=== PATIENT | female | born 1935 | race Caucasian/White ===

== ENCOUNTER 2021-01-07 13:29 | Outpatient (CLI) | payer MEDICARE, MEDICAID, SELFPAY | END 2021-01-07 13:30 | disposition home or self-care (01) | PROVIDERS: PCP Family Medicine; Visit Provider Specialist | DX: L01.00 Impetigo, unspecified (principal) | CPT/HCPCS: 87070; 87205 ==

== ENCOUNTER 2021-04-08 11:09 | Outpatient (CLI) | payer MEDICARE, MEDICAID, SELFPAY | END 2021-04-08 11:10 | disposition home or self-care (01) | LOC: CHSOUTPT 11:15 | PROVIDERS: PCP Family Medicine; Visit Provider Specialist | DX: C44.42 Squamous cell carcinoma of skin of scalp and neck (principal) | CPT/HCPCS: 88305 ==

== ENCOUNTER 2022-06-11 01:23 | Day surgery (SDC) | payer OTHER, SELFPAY ==
[2022-05-26 08:36] VITALS: BMI 32.3
--- NOTE | 2022-05-26 10:56 | PC.NURSE ---
PRE-OP INSTRUCTIONS, PLEASE READ CAREFULLY Report to the Outpatient Waiting Room, entrance under the green pavilion located off [facility], at time _0800_ on date _06/03/22_. Planned Procedure Time: _1000_. Time changes happen often and if your time is changed the preop area will call you the afternoon before. - You and your visitor will be asked to self-screen and do not enter if you have any COVID symptoms. - Only one visitor is requested with a max of two and NO children visitors are allowed at this time. - The patient visitor may be requested to leave or wait in car when not with patient due to distancing restrictions. - A mask is optional within the hospital. Patients may have clear liquids (water, carbonated beverages, clear teas, apple juice) until 3 hours prior to surgery (0700 AM) with a maximum of 20 ounces. - No food from midnight until time of surgery Take the following medications with a SIP of water the morning of surgery: _METOPROLOL, TYLENOL IF NEEDED_ Medications to discontinue ANESTHESIA - _MULTIVITAMIN 3 DAYS PRIOR TO SURGERY, Date to take last dose 05/30/22_ (PT MAY CONTINUE ASPIRIN PER DR. HOYOS) Please no make-up, nail sinhala, hairspray, perfume, deodorant, or body powder the day of surgery. No jewelry (including any body piercings) or valuables the day of surgery, leave them at home. Please take a shower or bath the night before, or the morning of, surgery with an antibacterial soap. Wear comfortable, loose fitting clothing. - Jewelry must be removed prior to entering the operating room. Rings and piercings that are not removed may be cut off. - The hospital will not accept responsibility for valuables. - Please leave all valuables, including medications, at home the day of surgery. If you are going home after surgery, a licensed owner operator tanker truck driver must drive you home. - NO public transportation without another adult if you receive anesthesia. - We recommend that an adult stay with you for 24 hours following discharge. - We also recommend that you do not drive, make important decision, drink alcoholic beverages, or take any drugs that were not prescribed by your health care provider for at least 24 hours after your discharge time. Follow any additional instructions given to you from your surgeon. If you or anyone in your household have experienced Covid symptoms in the past week, please notify your surgeon or the nurse liaison at the phone number below for possible testing. Telephone instructions given & FA[facility]ED to [facility]and asked if any additional questions and then verbalized understanding. Patient advised to call surgeon office or pre surgery nurse liaison [phone] if any additional questions.
--- NOTE | 2022-06-03 07:22 | WPDHPUPDATE1 ---
History and Physical Update Update Date/Time: 06/03/22 07:22 History and Physical has been reviewed, including an updated exam of the patient. There are NO changes in the patient's condition. Risks, benefits, and alternatives have been discussed and questions answered. Patient agrees to proceed with procedure.
--- NOTE | 2022-06-04 14:24 | PC.NURSE ---
PRE-OP INSTRUCTIONS PLEASE READ CAREFULLY Report to the Outpatient Waiting Room, entrance under the green pavilion located off [facility], at time _0730_ on date _06/11/22_. Planned Procedure Time: _0930_. Time changes happen often and if your time is changed the preop area will call you the afternoon before. - You and your visitor will be asked to self-screen and do not enter if you have any COVID symptoms. - Only one visitor is requested with a max of two and NO children visitors are allowed at this time. - The patient visitor may be requested to leave or wait in car when not with patient due to distancing restrictions. - A mask is optional within the hospital at this time. Patients may have clear liquids (water, carbonated beverages, clear teas, apple juice) until 3 hours prior to surgery (0630 AM) with a maximum of 20 ounces. - No food from midnight until time of surgery Take the following medications with a SIP of water the morning of surgery: _METOPROLOL, TYLENOL IF NEEDED_ DO NOT STOP ANY OF YOUR OTHER PRESCRIPTION MEDICATIONS PRIOR TO SURGERY ?EXCEPT THE FOLLOWING Medications to discontinue per ANESTHESIA - _MULTIVITAMIN 3 DAYS PRIOR TO SURGERY, Date to take last dose 06/07/22_ (MAY CONTINUE ASPIRIN PER DR. HOYOS) Please no make-up, nail moroccan, hairspray, perfume, deodorant, or body powder the day of surgery. No jewelry (including any body piercings) or valuables the day of surgery, leave them at home. Please take a shower or bath the night before, or the morning of, surgery with an antibacterial soap. Wear comfortable, loose fitting clothing. - Jewelry must be removed prior to entering the operating room. Rings and piercings that are not removed may be cut off. - The hospital will not accept responsibility for valuables. - Please leave all valuables, including medications, at home the day of surgery. If you are going home after surgery, a licensed newspaper delivery driver must drive you home. - NO public transportation without another adult if you receive anesthesia. - We recommend that an adult stay with you for 24 hours following discharge. - We also recommend that you do not drive, make important decision, drink alcoholic beverages, or take any drugs that were not prescribed by your health care provider for at least 24 hours after your discharge time. Follow any additional instructions given to you from your surgeon. If you or anyone in your household have experienced Covid symptoms in the past week, please notify your surgeon or the nurse liaison at the phone number below for possible testing. Telephone instructions given/FAXED to [facility] _and asked if any additional questions and then verbalized understanding. Patient advised to call surgeon office or pre surgery nurse liaison [phone] if any additional questions.
--- NOTE | 2022-06-11 07:17 | WPDANESEPPF ---
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 Section and Full Thickness Skin Graft - Parminder Jamil MD Date/Time: 06/11/22 07:17 Surgeon: Parminder Jamil MD Pre Op Diagnosis: Keratotic Neoplasm Forehead Patient Data Age: 86 Gender: F Height: 1.52 m Weight: 75 kg Allergies Allergy/AdvReac Type Severity Reaction Status Date / Time Penicillins Allergy Severe HIVES,SWELL Verified 05/26/22 09:16 ING codeine Allergy Mild nausea Verified 05/26/22 09:16 Home Medications Medication Instructions Recorded Confirmed Type acetaminophen 500 mg capsule 500 mg PO Q6H PRN Pain 04/08/21 05/26/22 History acetaminophen 650 mg rectal 650 mg RECTAL Q4H PRN PAIN/FEVER 04/08/21 05/26/22 History suppository atorvastatin 40 mg tablet 40 mg PO QHS 04/08/21 05/26/22 History bisacodyl 5 mg tablet (Laxative 5 mg PO QHS PRN Constipation 04/08/21 05/26/22 History (bisacodyl)) folic acid 800 mcg tablet 0.8 mg PO DAILY 04/08/21 05/26/22 History furosemide 40 mg tablet (Lasix) 40 mg PO BID 04/08/21 05/26/22 History magnesium oxide 400 mg (241.3 mg 400 mg PO DAILY 04/08/21 05/26/22 History magnesium) tablet (MagOx) metoprolol succinate 100 mg 100 mg PO DAILY 04/08/21 05/26/22 History tablet,extended release 24 hr aspirin 81 mg tablet,delayed 81 mg PO DAILY 06/04/21 05/26/22 History release (Adult Low Dose Aspirin) cholecalciferol (vitamin D3) 25 25 mcg PO DAILY 05/26/22 05/26/22 History mcg (1,000 unit) tablet mineral oil-hydrophil petrolat 1 applic topical BID 05/26/22 05/26/22 History topical ointment (Aquaphor topical ointment) multivitamin 1 tablet PO DAILY 05/26/22 05/26/22 History Patient hx anesthesia problems: none Family hx anesthesia problems: none Results Review: All pre-operative results and documents have been reviewed as part of the pre-operative evaluation. [facility] Past Medical History Medical History (Updated 06/11/22 @ 08:54 by Russell Jha DO) Dementia GERD (gastroesophageal reflux disease) HTN (hypertension) Hyperlipidemia Osteoarthritis PVD (peripheral vascular disease) Seizure TIA (transient ischemic attack) Wheelchair dependence Surgical History Surgical History (Updated 06/11/22 @ 07:18 by Russell Jha DO) History of cholecystectomy Social History Social History Smoking status: Never smoker Second hand tobacco smoke exposure: No Alcohol intake: never Substance use: never Substance use type: does not use Living arrangements: skilled nursing Additional living arrangements comments: [facility] [phone] Spiritual care concerns: No Anes - Eval Final PreProcedure Day of Procedure 06/11/22 07:17 Patient weight: obese Heart: regular rate and rhythm Lungs: clear to auscultation Airway: Mallampati scale class III Neurological: alert and oriented Last oral intake: >/= 8 hours ASA classification: IV Emergent: no Anesthetic plan: proceed Anesthesia type and monitoring: general GIVS and LMA and standard monitoring Results Review: All pre-operative results and documents have been reviewed as part of the pre-operative evaluation. Informed Consent: The patient's anesthetic plan and its attendant risks and benefits were discussed with the patient/family/POA. Questions were solicited and answers provided to the satisfaction of the patient/family/POA.
--- NOTE | 2022-06-11 07:20 | WPDHPUPDATE1 ---
History and Physical Update Update Date/Time: 06/11/22 07:20 History and Physical has been reviewed, including an updated exam of the patient. There are NO changes in the patient's condition. Risks, benefits, and alternatives have been discussed and questions answered. Patient agrees to proceed with procedure.
[2022-06-11] MEDS: ceFAZolin 2 GM/D5W 50 ML 2 GM/50 ML BAG IVPB (09:09)
[2022-06-11] MEDS: LACTATED RINGERS 1,000 ML 30 ML IV CONT (09:12)
[2022-06-11] MEDS: LIDO 1%/EPINEPHRINE 1:100,000 20 ML VIAL 10 ML INFILTRATE (09:43)
--- NOTE | 2022-06-11 09:43 | SUR.OPER ---
Frozen section specimens x 2 sent with YONI Siddiqui
--- NOTE | 2022-06-11 09:45 | SUR.OPER ---
Frozen section specimens x 2 received in pathology by
[2022-06-11 10:35] VITALS: BP 97/43; PULSE 76; RESP 12; O2SAT 99
--- NOTE | 2022-06-11 10:37 | W.PM.PROC2 ---
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 Post-op Diagnosis Same Procedure Performed 2 cm excision of keratotic neoplasm of the forehead with FS and Intermediate repair 3 cm. 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 Description of Procedure The patient presented for removal of the larger of these today. Neither has been biopsied. She has a history of skin cancer removed from her head. The POA requested that the smaller of these be removed today as well. The consent was amended to comply. The 2 sites were marked in the holding area. The patient was then transported to the operating room where she was placed supine on the operating table. She was given IV sedation with an LMA. The head and neck areas were prepped and draped in usual fashion. The sites were remarked and locally infiltrated with 1% lidocaine with epinephrine. The larger lesion was incised down just through the galea. The most anterior aspect was marked with suture for 12 o'clock. The specimen was taken off without exposing the calvaria. It was sent for frozen section. The smaller lesion from top of the head was taken off in the same fashion, marked in the same way and also sent for frozen section. The pathologist revealed free margins. The smaller lesion may have a small area of squamous cell skin cancer. By undermining extensively in all directions to the width of the original wounds, the wounds could be approximated with simple 3-0 or 2-0 nylon sutures. The patient tolerated this procedure well and was discharged from the operating stable condition. Estimated Blood Loss 2 Drains No Packing No Pathology Yes Complications No immediate complications Condition Stable Disposition Same day
[2022-06-11 11:05] VITALS: BP 112/54; PULSE 51; RESP 12; O2SAT 98
--- NOTE | 2022-06-11 12:43 | SUR.PHASEII ---
1130 spoke with angelica at [facility], gave her a rerport on pt and that we were waiting on van to [place]
== END 2022-06-11 12:00 | disposition home or self-care (01) ==
PROVIDERS: PCP Family Medicine; Visit Provider Plastic Surgery
PROC: (CPT 12052; principal; 2022-06-11 09:30)
DX: L57.0 Actinic keratosis (principal); I10 Essential (primary) hypertension; E78.5 Hyperlipidemia, unspecified; I73.9 Peripheral vascular disease, unspecified; F03.90 Unspecified dementia, unspecified severity, without behavioral disturbance, psychotic disturbance, mood disturbance, and anxiety; K21.9 Gastro-esophageal reflux disease without esophagitis; Z86.73 Personal history of transient ischemic attack (TIA), and cerebral infarction without residual deficits; Z99.3 Dependence on wheelchair; Z79.82 Long term (current) use of aspirin; E66.9 Obesity, unspecified; Z68.31 Body mass index [BMI] 31.0-31.9, adult
CPT/HCPCS: 12052; 11422; 12031; 11442; 88305; 88331; A9270; J0690; J2704; J3010; J7120